=== PATIENT | female | born 1945 | race Caucasian/White ===

== ENCOUNTER 2017-11-21 12:55 | Emergency (ER) | payer MEDICARE, OTHER ==
[2017-11-21 13:26] LABS: Base Excess 3.3 mEq/L (-2 - +2); pH (venous) 7.37 (7.35-7.45)
[2017-11-21 13:27] LABS: Hemoglobin (Hb) 14.2 g/dL (11.7-16.1)
[2017-11-21 13:36] LABS: ALT (SGPT) 41 U/L (8-55); AST (SGOT) 38 U/L (5-34); Albumin 3.6 g/dL (3.4-4.8); Alkaline Phosphatase 138 U/L (40-150); Anion Gap 18 mmol/L (10-20); BUN (Urea Nitrogen) 15 mg/dL (9.8-20.1); Bilirubin, Total 0.5 mg/dL (0.2-1.2); Calc. Creatinine Clearance 0 mL/min (70-130); Calcium 10.3 mg/dL (7.8-10.44); Carbon Dioxide 26 mmol/L (23-31); Chloride 95 mmol/L (98-107); Estimated GFR-MDRD Greater than 90; Globulin 3.8 g/dL (2.4-3.5); Glucose 111 mg/dL (80-115); Potassium 4.4 mmol/L (3.5-5.1); Protein, Total 7.4 g/dL (6.0-8.3); Sodium 135 mmol/L (136-145)
[2017-11-21 13:37] LABS: Troponin I Less than 0.010 ng/mL (< 0.028)
[2017-11-21 13:39] LABS: #Basophils 0.1 thou/uL (0.0-0.2); #Monocytes 1.7 thou/uL (0.11-0.59); %Basophils 0.4 % (0.0-1.0); %Eosinophils 0.2 % (0.0-10.0); %Lymphocytes 5.1 % (21.0-51.0); %Monocytes 8.9 % (0.0-10.0); %Neutrophils 85.5 % (42.0-75.0); Band 24 % (5-11); Hemoglobin 13.9 g/dL (12.0-16.0); Lymphocytes 3 % (21-51); MDiff Complete? YES; Mean Corpuscular HGB CONC 34.7 g/dL (32.0-36.0); Mean Corpuscular Hemoglobin 31.5 pg (27.0-31.0); Mean Corpuscular Volume 90.7 fl (81.0-99.0); Mean Platelet Volume 9.8 fL (7.4-10.4); Monocytes 6 % (0-10); Neutrophil 67 % (42-75); Platelet Count 164 thou/uL (130-400); RBC Distribution Width 12.4 % (11.5-14.5); Red Blood Cell (RBC) Count 4.43 mill/uL (4.20-5.40); Toxic Granulation SLIGHT; Vacuoles SLIGHT; White Blood Cell (WBC) Count 18.7 thou/uL (4.8-10.8)
[2017-11-21 13:42] LABS: CKMB 11.2 ng/mL (0-6.6)
--- NOTE | 2017-11-21 20:47 | RAD ---
PORTABLE CHEST: Date: 11-21-17 Comparison: None. FINDINGS: The heart is normal in size. There is diffuse interstitial prominence that is most likely fibrotic in nature, but sometimes acute infections can have such an appearance. No lobar consolidation, edema, p leural effusion or vascular congestion was seen. The lungs are hyperexpanded. There is probably a fat pad in the right cardiophrenic angle. The trachea is midline. IMPRESSION: Mild diffuse interstitial prominence. POS: HOME
== END 2017-11-21 14:26 | disposition short-term general hospital (02) ==
LOC: BURERS 12:55
DX: J44.0 Chronic obstructive pulmonary disease with (acute) lower respiratory infection (principal); J18.9 Pneumonia, unspecified organism; J44.1 Chronic obstructive pulmonary disease with (acute) exacerbation; I48.91 Unspecified atrial fibrillation; F17.210 Nicotine dependence, cigarettes, uncomplicated
CPT/HCPCS: 71045; 80053; 82553; 82805; 83880; 84484; 85025; 93005; 96365; 96375

== ENCOUNTER 2019-06-18 10:51 | Outpatient (CLI) | payer MEDICARE ==
--- NOTE | 2019-06-18 13:41 | RAD ---
CHEST 2 VIEWS: Date: 06/18/19 Comparison is made with the 12/08/17 study from [facility]. There are no new infiltrates in the right middle lobe and probably the lingula as well. These are pat juan in nature. The upper lobes are relatively clear. The heart size is normal. There is no vascular c ongestion or edema. IMPRESSION: Patchy right middle lobe and lingular infiltrates, a new finding since the prior study. The patient s hould be treated for pneumonia, but then if not clear, a CT should be done looking for additional pat hology. CODE T. POS: HOME
== END 2019-06-18 10:52 | disposition home or self-care (01) ==
LOC: BURRAD 10:51
PROVIDERS: ATTEND Nurse Practitioner Family
DX: R06.02 Shortness of breath (principal); R91.8 Other nonspecific abnormal finding of lung field
CPT/HCPCS: 71046

== ENCOUNTER 2021-08-03 14:36 | Outpatient (CLI) | payer MEDICARE | END 2021-08-03 14:37 | disposition home or self-care (01) | LOC: BURRAD 14:36 | PROVIDERS: ATTEND Family Medicine | DX: R05.9 Cough, unspecified (principal); R06.02 Shortness of breath | CPT/HCPCS: 71046 ==

== ENCOUNTER 2021-08-28 13:49 | Outpatient (CLI) | payer MEDICARE | END 2021-08-28 13:50 | disposition home or self-care (01) | LOC: BURRAD 13:49 | PROVIDERS: ATTEND Family Medicine | DX: M54.9 Dorsalgia, unspecified (principal); M62.838 Other muscle spasm; M51.36 Other intervertebral disc degeneration, lumbar region; K59.00 Constipation, unspecified; S22.069A Unspecified fracture of T7-T8 vertebra, initial encounter for closed fracture | CPT/HCPCS: 72070; 72100 ==

== ENCOUNTER 2022-04-27 15:29 | Inpatient (IN) | payer MEDICARE ==
[2022-04-27] MEDS ORDERED: methylPREDNISolone Sod Succ/PF 125 MG/2 ML VIAL ONE (15:47)
[2022-04-27] MEDS ORDERED: Magnesium 2 GM/50 ML BAG (IN WATER) ONE (15:47)
[2022-04-27] MEDS ORDERED: Albuterol Sulfate 1.25 MG/3 ML NEB ONE (15:47)
[2022-04-27 15:50] LABS: Hemoglobin 10.2 g/dL (12.0-16.0); Mean Corpuscular HGB CONC 27.4 g/dL (32.0-36.0); Mean Corpuscular Hemoglobin 24.7 pg (27.0-31.0); Mean Corpuscular Volume 90.3 fL (78.0-98.0); Platelet Count 173 thou/uL (130-400); RBC Distribution Width 16.9 % (11.5-14.5); Red Blood Cell (RBC) Count 4.12 mill/uL (4.20-5.40); White Blood Cell (WBC) Count 9.4 thou/uL (4.8-10.8)
[2022-04-27 16:03] LABS: Band 12 % (5-11); Hypochromia SLIGHT = 6-15 cells (100X) (0-5/hpf); Lymphocytes 4 % (21-51); MDiff Complete? YES; Monocytes 5 % (0-10); Neutrophil 78 % (42-75)
[2022-04-27 16:05] LABS: ALT (SGPT) 37 U/L (8-55); AST (SGOT) 19 U/L (5-34); Alkaline Phosphatase 62 U/L (40-110); Anion Gap 12 mmol/L (10-20); BUN (Urea Nitrogen) 23 mg/dL (9.8-20.1); Bilirubin, Total 0.4 mg/dL (0.2-1.2); Calc. Creatinine Clearance 0 mL/min (70-130); Calcium 9.2 mg/dL (7.8-10.44); Estimated GFR 93; Globulin 2.3 g/dL (2.4-3.5); Glucose 128 mg/dL (83-110); Protein, Total 6.3 g/dL (5.8-8.1)
[2022-04-27 16:09] LABS: Carbon Dioxide 44 mmol/L (23-31); Chloride 94 mmol/L (98-107); Potassium 4.8 mmol/L (3.5-5.1); Sodium 145 mmol/L (136-145)
[2022-04-27] MEDS ORDERED: cefTRIAXone\\ROCEPHIN 2 GM VIAL ONE (16:57)
[2022-04-27] MEDS ORDERED: Azithromycin 250 MG TAB ONE (16:57)
[2022-04-27 18:15] LABS: Bilirubin Negative (Negative); Blood, Urine Negative (Negative); Clarity Cloudy (Clear); Glucose, Urine (Dipstick) Negative (Negative); Ketone, Urine Negative (Negative); Leukocyte Negative (Negative); Nitrite Negative (Negative); Protein, Urine (Dipstick) Negative (Neg-Trace); Urobilinogen 0.2 mg/dL (Less than 2); pH, Urine 7.5 (5.0-9.0)
[2022-04-27 18:19] LABS: SARS-CoV-2 NAA Rapid Test Not Detected (NotDetected)
[2022-04-27 19:17] VITALS: BMI 19.5
[2022-04-27] MEDS ORDERED: Ondansetron ODT 4 MG TAB SL PRN (20:00)
[2022-04-27] MEDS ORDERED: Ondansetron PF 4 MG/2 ML Vial IVP PRN (20:00)
[2022-04-27] MEDS ORDERED: Acetaminophen 325 MG TAB PO PRN (20:00)
[2022-04-27] MEDS ORDERED: Dextrose 5 %-0.45 % NaCl 1,000 ML IV SCH (20:00)
[2022-04-27] MEDS: Nicotine 14 MG PATCH TOP SCH (20:34)
[2022-04-27] MEDS: Calcium Carbonate 600 MG + Vit D TAB PO SCH ×2 (20:34→20:44)
[2022-04-27] MEDS: Mometasone/Formoterol 200/5 60 PUFF INH SCH (20:39)
[2022-04-27] MEDS: Famotidine 20 MG TAB PO SCH (20:55)
[2022-04-28] MEDS: methylPREDNISolone Sod Succ 40 MG VIAL IVP SCH ×3 (01:21→15:48)
[2022-04-28 05:05] LABS: #Lymphocytes 0.3 thou/uL (1.20-3.40); #Monocytes 0.5 thou/uL (0.11-0.59); #Neutrophils 6.7 thou/uL (1.40-6.50); %Basophils 0.2 % (0.0-1.0); %Eosinophils 0.1 % (0.0-10.0); %Lymphocytes 3.3 % (21.0-51.0); %Monocytes 6.2 % (0.0-10.0); %Neutrophils 90.2 % (42.0-75.0); Hemoglobin 9.9 g/dL (12.0-16.0); Mean Corpuscular HGB CONC 28.6 g/dL (32.0-36.0); Mean Corpuscular Hemoglobin 25.2 pg (27.0-31.0); Mean Corpuscular Volume 88.2 fL (78.0-98.0); Mean Platelet Volume 11.5 fL (7.4-10.4); Platelet Count 153 thou/uL (130-400); RBC Distribution Width 16.4 % (11.5-14.5); Red Blood Cell (RBC) Count 3.94 mill/uL (4.20-5.40); White Blood Cell (WBC) Count 7.4 thou/uL (4.8-10.8)
[2022-04-28 05:16] LABS: Anion Gap 15 mmol/L (10-20); BUN (Urea Nitrogen) 18 mg/dL (9.8-20.1); Calc. Creatinine Clearance 75 mL/min (70-130); Calcium 8.5 mg/dL (7.8-10.44); Estimated GFR 97; Glucose 181 mg/dL (83-110)
[2022-04-28 05:19] LABS: Chloride 94 mmol/L (98-107); Potassium 4.7 mmol/L (3.5-5.1); Sodium 143 mmol/L (136-145)
[2022-04-28 05:21] LABS: Platelet Morphology Comment Appears Adequate; RBC Morphology Normal
[2022-04-28 05:23] LABS: Carbon Dioxide Greater than 37 mmol/L (23-31)
[2022-04-28] MEDS: Calcium Carbonate 600 MG + Vit D TAB PO SCH ×2 (09:56→21:12)
[2022-04-28] MEDS: Famotidine 20 MG TAB PO SCH ×2 (09:56→21:10)
[2022-04-28] MEDS: Multivitamin W/ Minerals 1 TAB PO SCH (09:56)
[2022-04-28] MEDS: Enoxaparin Sodium 40 MG/0.4 ML SYRINGE SC SCH (11:11)
[2022-04-28] MEDS: Mometasone/Formoterol 200/5 60 PUFF INH SCH ×2 (11:11→21:12)
[2022-04-28] MEDS ORDERED: Acetaminophen 325 MG TAB PO PRN (14:51)
[2022-04-28] MEDS ORDERED: Senokot 8.6 MG TAB PO PRN (14:56)
[2022-04-28] MEDS ORDERED: Oxymetazoline HCl 0.05% (30 ML BOT) NS PRN (14:57)
[2022-04-28] MEDS ORDERED: Acetaminophen 500 MG TAB PO PRN (14:59)
[2022-04-28] MEDS ORDERED: Oxymetazoline HCl 0.05% (30 ML BOT) ONE (16:11)
[2022-04-28] MEDS ORDERED: cefTRIAXone\\ROCEPHIN 1 GM in Sodium Chloride 0.9% 100 ML IVPB SCH (18:00)
[2022-04-28] MEDS ORDERED: Azithromycin 500 MG in Sodium Chloride 0.9% 250 ML 250 ML IVPB SCH (20:00)
[2022-04-28] MEDS: Nicotine 14 MG PATCH TOP SCH (21:10)
[2022-04-29] MEDS: methylPREDNISolone Sod Succ 40 MG VIAL IVP SCH ×2 (00:27→08:55)
[2022-04-29] MEDS: Multivitamin W/ Minerals 1 TAB PO SCH (09:00)
[2022-04-29] MEDS: Enoxaparin Sodium 40 MG/0.4 ML SYRINGE SC SCH (09:00)
[2022-04-29] MEDS: Famotidine 20 MG TAB PO SCH (09:00)
[2022-04-29] MEDS: Calcium Carbonate 600 MG + Vit D TAB PO SCH (09:00)
[2022-04-29] MEDS: Mometasone/Formoterol 200/5 60 PUFF INH SCH (09:05)
[2022-04-29 13:33] VITALS: BP 112/68; TEMP 98.4
== END 2022-04-29 13:40 | disposition home or self-care (01) | DRG 192 ==
LOC: BURERS 15:29 → BURMED 17:00
PROVIDERS: ADMIT Family Medicine; ATTEND Family Medicine
DX: J44.1 Chronic obstructive pulmonary disease with (acute) exacerbation (principal); F17.210 Nicotine dependence, cigarettes, uncomplicated; R91.1 Solitary pulmonary nodule; E78.00 Pure hypercholesterolemia, unspecified; D64.9 Anemia, unspecified; Z20.822 Contact with and (suspected) exposure to COVID-19; Z90.710 Acquired absence of both cervix and uterus
CPT/HCPCS: 36415; 71045; 71250; 80048; 80053; 81003; 83605; 83880; 84484; 85025; 87040; 87086; 93005; 94640; 94664; 94760; 96365; 96367; 96375; J0456; J0696; J1650; J2920; J2930; J3475; J3490; J7042; J7050; J7620; U0002

== ENCOUNTER 2022-05-27 09:56 | Emergency (ER) | payer MEDICARE ==
[2022-05-27] MEDS ORDERED: Naloxone HCl 0.4 mg/ml Vial ONE ×2 (10:00→10:01)
[2022-05-27 10:19] LABS: #Basophils 0.1 thou/uL (0.0-0.2); #Lymphocytes 0.8 thou/uL (1.20-3.40); #Monocytes 0.5 thou/uL (0.11-0.59); #Neutrophils 5.6 thou/uL (1.40-6.50); %Basophils 1.4 % (0.0-1.0); %Eosinophils 0.1 % (0.0-10.0); %Lymphocytes 11.1 % (21.0-51.0); %Monocytes 6.6 % (0.0-10.0); %Neutrophils 80.8 % (42.0-75.0); Hemoglobin 9.4 g/dL (12.0-16.0); Mean Corpuscular HGB CONC 28.1 g/dL (32.0-36.0); Mean Corpuscular Hemoglobin 25.6 pg (27.0-31.0); Mean Corpuscular Volume 91.1 fL (78.0-98.0); Mean Platelet Volume 9.3 fL (7.4-10.4); Platelet Count 180 thou/uL (130-400); RBC Distribution Width 16.9 % (11.5-14.5); Red Blood Cell (RBC) Count 3.68 mill/uL (4.20-5.40); White Blood Cell (WBC) Count 6.9 thou/uL (4.8-10.8)
[2022-05-27 10:37] LABS: Acetaminophen Less than 10.0 mcg/mL (10.0-30.0); Alcohol Less than 10 mg/dL (Less than 10); Salicylate Less than 8.0 mg/dL (15.0-30.0)
[2022-05-27 10:38] LABS: ALT (SGPT) 25 U/L (8-55); AST (SGOT) 27 U/L (5-34); Albumin 3.9 g/dL (3.4-4.8); Alkaline Phosphatase 92 U/L (40-110); Anion Gap 17 mmol/L (10-20); BUN (Urea Nitrogen) 25 mg/dL (9.8-20.1); Bilirubin, Total 0.2 mg/dL (0.2-1.2); Calc. Creatinine Clearance 0 mL/min (70-130); Calcium 9.3 mg/dL (7.8-10.44); Estimated GFR 93; Globulin 2.7 g/dL (2.4-3.5); Glucose 146 mg/dL (83-110); Magnesium 2.1 mg/dL (1.6-2.6); Protein, Total 6.6 g/dL (5.8-8.1)
[2022-05-27 10:42] LABS: Chloride 90 mmol/L (98-107); Potassium 4.8 mmol/L (3.5-5.1); Sodium 150 mmol/L (136-145)
[2022-05-27 10:44] LABS: Carbon Dioxide 49 mmol/L (23-31)
[2022-05-27 10:53] LABS: RBC Morphology Normal
[2022-05-27 10:54] LABS: Base Excess-Venous 17.7 mmol/L (-2.0 to 3.0); CO2 Tension (PvCO2) 147.9 mmHg (42.0-51.0); Calcium, Ionized 1.15 mmol/L (1.15-1.33); Chloride 90 mmol/L (98-107); Hemoglobin - Calc 11.7 g/dL (12.0-16.0); Potassium 4.3 mmol/L (3.5-5.1); Sodium 145 mmol/L (138-145); T. Carbon Dioxide Greater than 50.0 mmol/L (22.0-28.0); vO2 Saturation-calc 99.3 % (60.0-85.0)
[2022-05-27] MEDS ORDERED: methylPREDNISolone Sod Succ/PF 125 MG/2 ML VIAL ONE (11:58)
[2022-05-27] MEDS ORDERED: Azithromycin 500 MG VIAL ONE (11:58)
[2022-05-27] MEDS ORDERED: cefTRIAXone\\ROCEPHIN 2 GM VIAL ONE (11:58)
[2022-05-27] MEDS ORDERED: Sodium Chloride 0.9% 100 ML ONE (11:59)
[2022-05-27] MEDS ORDERED: Fentanyl 100 MCG/2 ML VIAL ONE (12:08)
[2022-05-27 12:33] LABS: SARS-CoV-2 NAA Rapid Test Not Detected (NotDetected)
[2022-05-27] MEDS ORDERED: Morphine 4 MG/ML VIAL ONE ×2 (15:13→15:48)
[2022-05-27] MEDS ORDERED: Lorazepam 2 MG/ML VIAL ONE (16:36)
== END 2022-05-27 17:41 | disposition expired ==
LOC: BURERS 09:56
DX: J44.1 Chronic obstructive pulmonary disease with (acute) exacerbation (principal); J96.90 Respiratory failure, unspecified, unspecified whether with hypoxia or hypercapnia; E87.2 Acidosis; Z20.822 Contact with and (suspected) exposure to COVID-19
CPT/HCPCS: 70450; 71045; 80307; 82330; 82435; 82803; 82962; 83605; 83735; 84132; 84295; 84484; 85014; 87040; 87804 ×2; 93005; 96374; 96375; 96376; 99285; U0002; 36416; 80053; 84443; 85025; 36415-59; J0456; J0696; J2060; J2270; J2310; J2930; J3010; J3490; J7620